=== PATIENT | female | born 1965 | race African-American/Black ===

== ENCOUNTER 2019-03-29 17:56 | Emergency (ER) | payer SELFPAY ==
[~2019-03-29] VITALS: Ht 167.6 cm; Wt 113.4 kg
[2019-03-29 20:33] VITALS: BP 164/89
[2019-03-29] MEDS ORDERED: IBUPROFEN 800 MG TAB PO ONE (21:45)
[2019-03-29] MEDS ORDERED: METHOCARBAMOL 500 MG TAB PO ONE (21:45)
== END 2019-03-29 22:43 | disposition home or self-care (01) ==
LOC: EDBD 17:56 → ER 18:01
DX: S30.1XXA Contusion of abdominal wall, initial encounter (principal); I10 Essential (primary) hypertension; M19.90 Unspecified osteoarthritis, unspecified site; V43.62XA Car passenger injured in collision with other type car in traffic accident, initial encounter; Y93.89 Activity, other specified; Y99.8 Other external cause status; Y92.410 Unspecified street and highway as the place of occurrence of the external cause
CPT/HCPCS: 74176